=== PATIENT | female | born 1995 | race Caucasian/White ===

== ENCOUNTER 2019-06-18 13:06 | Emergency (ER) | payer OTHER, SELFPAY ==
[2019-06-18 13:15] VITALS: BP 115/71; PULSE 69; RESP 18; TEMP 37.2; O2SAT 100
--- NOTE | 2019-06-18 13:29 | ED.URI ---
HPI - URI/Sore Throat General Chief Complaint: Upper Respiratory Infection Stated Complaint: Sore Throat Source: patient Mode of arrival: ambulatory Limitations: no limitations History of Present Illness HPI Narrative: Patient is a 24-year-old female who presents with sore throat, body aches, nausea, headache, cough and chills x3 to 4 days. She denies taking [id number] medications at this time. She denies vomiting or diarrhea. MD elicited complaint: sore throat Related Data Allergies Allergy/AdvReac Type Severity Reaction Status Date / Time No Known Drug Allergies Allergy Unknown Verified 12/02/18 16:00 Review of Systems Review of Systems: Narrative: CONSTITUTIONAL: Denies fever, chills, or sweats. EYES: Denies visual changes, redness, or discharge. ENT: Denies rhinorrhea, congestion, or otalgia. Reports sore throat CARDIOVASCULAR: Denies chest pain, palpitations, or edema. RESPIRATORY: Reports cough, denies dyspnea. GASTROINTESTINAL: Denies abdominal pain, vomiting, or diarrhea. Reports nausea GENITOURINARY: Denies dysuria or hematuria. SKIN: Denies rash or itching. MUSCULOSKELETAL: Denies back pain, joint pain, or myalgia. NEUROLOGIC: Denies headache, numbness, dizziness, or weakness. PSYCHIATRIC: Denies anxiety or depression. COUNTS INCLUDE 234 BEDS AT THE [facility] Social History Social History (Updated 06/18/19 @ 13:33 by MIKAELA Bobo) Smoking status: Current every day smoker Alcohol intake: current Alcohol use details: Socially Substance use: never Living arrangements: with family Gender identity (if verbalized by the patient): Female Exam Narrative: Exam Narrative: GENERAL: Well-appearing, well-nourished, and in no acute distress. HEAD: Normocephalic, atraumatic. EYES: EOMI. No redness or drainage. Conjunctiva are normal. ENT: Mucous membranes pink and moist. Nares clear. No rhinorrhea. TMs normal bilaterally. Pharyngeal erythema and edema. Uvula midline. NECK: AROM. Supple. No lymphadenopathy. CHEST: No respiratory distress. Clear to auscultation. HEART: Regular rate and rhythm. No murmur appreciated. Normal peripheral pulses. GI: Soft, nontender without rebound, or guarding. No distention. Bowel sounds normal in all quadrants. MUSCULOSKELETAL: No bony tenderness. EXTREMITIES: Normal range of motion. No edema. SKIN: Warm, dry, no rash. NEURO: No focal deficits. Alert and oriented x3. Gait steady. PSYCH: Normal affect. No signs of depression or anxiety. Course Vital Signs Vital signs: Vital Signs Temperature 37.2 C 06/18/19 13:15 Pulse Rate 69 06/18/19 13:15 Respiratory Rate 18 06/18/19 13:15 Blood Pressure 115/71 06/18/19 13:15 Pulse Oximetry 100 06/18/19 13:15 Temperature 37.2 C 06/18/19 13:15 Pulse Rate 69 06/18/19 13:15 Respiratory Rate 18 06/18/19 13:15 Blood Pressure 115/71 06/18/19 13:15 Pulse Oximetry 100 06/18/19 13:15 MDM - URI/Sore Throat MDM Narrative Medical decision making narrative: Rapid strep is negative. Patient most likely has viral illness. Discussed plan of care with patient. Patient is stable for discharge home with outpatient follow-up as needed. Differential Diagnosis Differential diagnosis: Likely upper respiratory infection, viral infection, bronchitis, influenza and pharyngitis Medical Records Attestation: I reviewed the patient's medical records. Lab Data Attestation: I reviewed the patient's lab results. Labs: Strep Screen Presumptive Negative *(Reference Range: Negative)* Discharge Plan Discharge Clinical Impression: Pharyngitis, Nausea Patient Disposition: Home, Self-Care Condition: Stable Prescriptions: New prednisone 20 mg tablet 20 mg PO BID 5 Days Qty: 10 RF: 0 ondansetron 4 mg tablet,disintegrating 4 mg PO Q6H PRN (Reason: nausea and vomiting) Qty: 10 RF: 0 ibuprofen 600 mg tablet 600 mg PO Q6H PRN (Reason: fever or pain) Qty: 20 RF: 0 Follow-up/R
== END 2019-06-18 13:40 | disposition home or self-care (01) ==
PROVIDERS: Emergency Provider Nurse Practitioner
DX: J02.9 Acute pharyngitis, unspecified (principal); R11.0 Nausea; F17.200 Nicotine dependence, unspecified, uncomplicated
CPT/HCPCS: 87081; 87880; 99213; G0463

== ENCOUNTER 2019-08-01 17:30 | Emergency (ER) | payer OTHER, SELFPAY ==
--- NOTE | ~2019-08-01 | XR_ITS ---
EXAMINATION: XR chest 1V portable 08/01/2019 18:25 INDICATION: Midsternal chest pain PROCEDURE: AP portable chest COMPARISON: CT dated 12/05/2018 FINDINGS: The lungs are clear. The cardiomediastinal silhouette is within normal limits. There are no pleural effusions. There is no pneumothorax suspected. IMPRESSION: 1: NO ACUTE CARDIOPULMONARY DISEASE. Reviewed, dictated and finalized at location A.
[2019-08-01 17:37] VITALS: BP 110/79; PULSE 96; RESP 20; TEMP 36.8; O2SAT 98
--- NOTE | 2019-08-01 18:05 | ECG_ITS ---
Measurements Intervals [place] Rate: 83 P: 67 MT: 139 QRS: 23 QRSD: 98 T: 40 QT: 367 QTc: 433 Interpretive Statements SINUS RHYTHM WITH SINUS ARRHYTHMIA INCOMPLETE RIGHT BUNDLE BRANCH BLOCK BORDERLINE ECG Electronically Signed On 08-02-2019 13:31:36 CDT by Alexandr Ryan D.O.
[2019-08-01 18:06] VITALS: PULSE 69
[2019-08-01 18:17] LABS: Basophils Absolute Auto 0.1 K/mm3 (0.0-0.1); Basophils Percent Auto 0.6 % (0.2-1.2); Eosinophils Absolute Auto 0.1 K/mm3 (0-0.3); Eosinophils Percent Auto 1.6 % (0-4.4); Hematocrit 38.3 % (37.0-47.0); Hemoglobin 12.1 g/dL (12.0-15.0); Immature Granulocyte Absolute 0.03 K/mm3 (0.00-0.031); Immature Granulocyte Percent A 0.4 % (0-0.5); Lymphocytes Absolute Auto 2.31 K/mm3 (0.9-3.2); Mean Corpuscular HGB Conc 31.6 g/dl (32-36); Mean Corpuscular Hemoglobin 25.9 pg (26-34); Mean Platelet Volume 11.5 fl (7.4-10.4); Monocytes Absolute Auto 0.5 K/mm3 (0.1-0.6); Monocytes Percent Auto 5.3 % (2.6-8.5); Neutrophils Absolute Auto 5.6 K/mm3 (1.3-6.7); Neutrophils Percent Auto 65.1 % (45.5-73.1); Platelet Count Result 215 k/mm3 (150-375); Red Blood Count 4.67 M/mm3 (4.2-5.4); Red Cell Distribution Width 14.4 % (11.5-14.5); White Blood Count 8.5 K/mm3 (4.5-10.0)
[2019-08-01 18:26] LABS: INR 1.1; Prothrombin Time 13.6 Seconds (11.1-14.7)
[2019-08-01 18:27] LABS: Partial Thromboplastin Time 27.3 SECONDS (22.3-36.8)
[2019-08-01 18:29] LABS: Blood Urea Nitrogen 13 mg/dL (7-17); Calcium 9.4 mg/dL (8.4-10.2); Carbon Dioxide 27 mmol/L (22-30); Chloride 106 mmol/L (98-107); Estimated CRCL calculation 103 ml/min; Estimated Glomerular Filt Rate > 60; Glucose 93 mg/dL (65-105); Potassium 3.7 mmol/L (3.4-5.0); Sodium 140 mmol/L (137-145)
[2019-08-01] MEDS: ASPIRIN 81 MG CHEWABLE TABLET 324 MG PO (18:29)
[2019-08-01 18:41] LABS: Troponin I < 0.012 ng/mL (0.000-0.034)
--- NOTE | 2019-08-01 18:46 | ED.CHESTPAIN ---
HPI - Chest Pain General Chief Complaint: Chest Pain Stated Complaint: CP X3D Time Seen by Provider: 08/01/19 17:34 Source: patient Limitations: no limitations History of Present Illness HPI narrative: Patient is a 24-year-old female who presents with left-sided chest pain for 3 days that is been constant noting aching pain patient denies injury trauma or illness was seen by primary care and referred to emergency department on arrival patient in no distress resting comfortably has not taken anything for her pain Related Data Allergies Allergy/AdvReac Type Severity Reaction Status Date / Time No Known Drug Allergies Allergy Unknown Verified 12/02/18 16:00 Review of Systems Review of Systems: All systems reviewed & are unremarkable except as noted in HPI and below PMFSH Social History Social History Smoking status: Current every day smoker Alcohol intake: current Substance use: never Gender identity (if verbalized by the patient): Female Exam Narrative: Exam Narrative: GENERAL: Well-appearing, well-nourished, and in no acute distress. HEAD: Normocephalic, atraumatic. EYES: PERRLA and EOMI. ENT: Nares clear, no rhinorrhea or epistaxis. Mucous membranes moist. Oropharynx without tonsillar hypertrophy exudate or other lesions. NECK: Supple. No adenopathy or masses. CHEST: Clear to auscultation. No respiratory distress. No wheezes rales or rhonchi reproducible left-sided chest wall tenderness to palpation. HEART: Regular rate and rhythm. No murmur heard. Normal peripheral pulses. ABDOMEN: Soft, nontender, nondistended EXTREMITIES: Normal range of motion. No edema. SKIN: Warm, dry, no rash. NEURO: No focal deficits. Alert and oriented x3. PSYCH: Normal mood and affect. Course Course Emergency Course: Patient in the room in no distress aware of case findings treatment plan and diagnosis agreeing to follow-up as directed or to return if symptoms worsen or concerns Vital Signs Vital signs: Vital Signs Temperature 98.3 F 08/01/19 17:37 Pulse Rate 96 08/01/19 17:37 Respiratory Rate 20 08/01/19 17:37 Blood Pressure 110/79 08/01/19 17:37 Pulse Oximetry 98 08/01/19 17:37 Temperature 98.3 F 08/01/19 17:37 Pulse Rate 69 04/08/20 18:06 Respiratory Rate 20 08/01/19 17:37 Blood Pressure 110/79 08/01/19 17:37 Pulse Oximetry 98 08/01/19 17:37 MDM - Chest Pain MDM Narrative Medical decision making narrative: Patient without any high risk changes in her imaging blood work and EKG felt appropriate for outpatient reevaluation by primary care patients pain is reproducible normal vital signs Lab Data Result diagrams: 08/01/19 18:11 08/01/19 18:11 Labs: Lab Results 08/01/19 08/01/19 08/01/19 Range/Units 18:10 18:11 18:11 WBC 8.5 (4.5-10.0) K/mm3 RBC 4.67 (4.2-5.4) M/mm3 Hgb 12.1 (12.0-15.0) g/dL Hct 38.3 (37.0-47.0) % MCV 82.0 (80-100) fl MCH 25.9 L (26-34) pg MCHC 31.6 L (32-36) g/dl RDW 14.4 (11.5-14.5) % Plt Count 215 (150-375) k/mm3 MPV 11.5 H (7.4-10.4) fl Immature Gran % (Auto) 0.4 (0-0.5) % Neut % (Auto) 65.1 (45.5-73.1) % Lymph % (Auto) 27.0 (18.3-44.2) % [place] % (Auto) 5.3 (2.6-8.5) % Eos % (Auto) 1.6 (0-4.4) % Baso % (Auto) 0.6 (0.2-1.2) % Lymph # (Auto) 2.31 (0.9-3.2) K/mm3 [place] # (Auto) 0.5 (0.1-0.6) K/mm3 Eos # (Auto) 0.1 (0-0.3) K/mm3 Baso # (Auto) 0.1 (0.0-0.1) K/mm3 Abs Immat Gran (auto) 0.03 (0.00-0.031) K/mm3 Absolute Neuts (auto) 5.6 (1.3-6.7) K/mm3 Absolute Nucleated RBC 0.0 (0.0-0.012) K/mm3 Nucleated RBC % 0.0 (0.0-0.2) % PT 13.6 (11.1-14.7) Seconds INR 1.1 APTT 27.3 (22.3-36.8) SECONDS Sodium 140 (137-145) mmol/L Potassium 3.7 (3.4-5.0) mmol/L Chloride 106 (98-107) mmol/L Carbon Dioxide 27 (22-30) mmol/L BUN 13
== END 2019-08-01 19:04 | disposition home or self-care (01) ==
PROVIDERS: Emergency Provider Emergency Medicine; PCP Emergency Medicine
DX: R07.9 Chest pain, unspecified (principal); F17.200 Nicotine dependence, unspecified, uncomplicated; I45.10 Unspecified right bundle-branch block
CPT/HCPCS: 36415; 71045; 80048; 84484; 85025; 85610; 85730; 93005; 99284; A9270

== ENCOUNTER 2019-10-14 | Emergency (ER) | payer OTHER, SELFPAY ==
--- NOTE | ~2019-10-14 | XR_ITS ---
EXAMINATION: XR chest 2V 10/14/2019 00:24 INDICATION: Chest pain PROCEDURE: PA and lateral views of the chest COMPARISON: 08/01/2019 FINDINGS: The lungs are clear. The cardiomediastinal silhouette is within normal limits. There are no pleural effusions. There is no pneumothorax suspected. IMPRESSION: 1: NO ACUTE CARDIOPULMONARY DISEASE. Reviewed, dictated and finalized at location A.
[2019-10-14 00:04] VITALS: BP 136/88; PULSE 79; RESP 18; TEMP 37.2; O2SAT 100
--- NOTE | 2019-10-14 00:06 | ECG_ITS ---
Measurements Intervals [place] Rate: 65 P: 43 RI: 140 QRS: 9 QRSD: 97 T: 41 QT: 367 QTc: 383 Interpretive Statements SINUS RHYTHM WITH SINUS ARRHYTHMIA INCOMPLETE RIGHT BUNDLE BRANCH BLOCK DELAYED PRECORDIAL R/S TRANSITION BASELINE ARTIFACT- I, II, AVR, V1 BORDERLINE ECG Electronically Signed On 10-14-2019 8:12:33 CDT by Alexandr Ryan D.O.
[2019-10-14 00:27] LABS: Basophils Absolute Auto 0.1 K/mm3 (0.0-0.1); Basophils Percent Auto 0.6 % (0.2-1.2); Eosinophils Absolute Auto 0.2 K/mm3 (0-0.3); Immature Granulocyte Absolute 0.02 K/mm3 (0.00-0.031); Immature Granulocyte Percent A 0.2 % (0-0.5); Lymphocytes Absolute Auto 2.65 K/mm3 (0.9-3.2); Lymphocytes Percent Auto 32.6 % (18.3-44.2); Mean Corpuscular HGB Conc 31.7 g/dl (32-36); Mean Corpuscular Hemoglobin 26.1 pg (26-34); Mean Corpuscular Volume 82.3 fl (80-100); Mean Platelet Volume 12.4 fl (7.4-10.4); Monocytes Absolute Auto 0.7 K/mm3 (0.1-0.6); Monocytes Percent Auto 8.2 % (2.6-8.5); Neutrophils Absolute Auto 4.6 K/mm3 (1.3-6.7); Neutrophils Percent Auto 56.4 % (45.5-73.1); Platelet Count Result 194 k/mm3 (150-375); Red Blood Count 4.98 M/mm3 (4.2-5.4); Red Cell Distribution Width 15.5 % (11.5-14.5); White Blood Count 8.1 K/mm3 (4.5-10.0)
[2019-10-14 00:32] LABS: INR 1.1; Partial Thromboplastin Time 26.8 SECONDS (22.3-36.8); Prothrombin Time 13.5 Seconds (11.1-14.7)
[2019-10-14 00:34] LABS: Blood Urea Nitrogen 19 mg/dL (7-17); Calcium 9.4 mg/dL (8.4-10.2); Carbon Dioxide 25 mmol/L (22-30); Chloride 106 mmol/L (98-107); Estimated Glomerular Filt Rate > 60; Glucose 89 mg/dL (65-105); Sodium 140 mmol/L (137-145)
[2019-10-14 00:45] LABS: Troponin I < 0.012 ng/mL (0.000-0.034)
[2019-10-14 01:21] LABS: D Dimer 0.27 ug/mL (<0.48)
[2019-10-14] MEDS: KETOROLAC 15 MG/ML VIAL (*BKC) IV PUSH (01:32)
[2019-10-14 01:46] VITALS: BP 105/70; PULSE 64; RESP 18; O2SAT 99
--- NOTE | 2019-10-14 01:56 | ED.CHESTPAIN ---
HPI - Chest Pain General Chief Complaint: Chest Pain Stated Complaint: chest pain Time Seen by Provider: 10/14/19 00:13 Source: patient Mode of arrival: ambulatory Limitations: no limitations History of Present Illness HPI narrative: This patient is a 24 year old female who presents for evaluation of left sternal chest pain. She states she has had this pain for 2 m onths intermittently but yesterday her pain worsened. She has not taken anything for pain. This pain is described as sharp. She has not associated fever, cough, nausea or vomiting. It may be worse with movement. She was evaluated for this pain 2 mon ths and she is unsure of diagnosis. MD complaint: chest pain Onset: during rest Pain radiation: none Risk Factors Coronary artery disease risk factors: none Related Data Allergies Allergy/AdvReac Type Severity Reaction Status Date / Time No Known Drug Allergies Allergy Unknown Verified 12/02/18 16:00 Review of Systems Review of Systems: All systems reviewed & are unremarkable except as noted in HPI and below Constitutional: Constitutional: Denies chills and Denies fever(s) Cardiovascular: Cardiovascular: Reports chest pain and Denies radiating jaw, neck or arm pain Respiratory: Respiratory: Denies cough, Denies dyspnea and Denies wheezing Gastrointestinal: Gastrointestinal: Denies abdominal pain, Denies nausea and Denies vomiting PMFSH Social History Social History Smoking status: Current every day smoker Alcohol intake: current Substance use: never Gender identity (if verbalized by the patient): Female Exam Narrative: Exam Narrative: GENERAL: Well-appearing, well-nourished, and in no acute distress. HEAD: Normocephalic, atraumatic EYES: PERRLA and EOMI, conjunctiva clear without discharge THROAT:Mucous membranes moist, NECK: Supple, without lymphadenopathy or mass RESPIRATORY: No respiratory distress, Airway patent, Respirations non-labored, Clear to auscultation without rales, rhonchi or wheeze, reproducible chest tenderness HEART: Regular rate and rhythm. No murmur heard. Normal peripheral pulses. ABDOMEN: Soft, nontender, nondistended, normal active bowel sounds. No masses. No rebound or guarding, No organomegaly. EXTREMITIES: No edema, normal strength with full range of motion. SKIN: Warm, dry, normal color without rash NEURO: Alert and oriented x3. CN 2-12 grossly intact. No focal deficits. PSYCH: Normal mood and affect. Course Vital Signs Vital signs: Vital Signs Temperature 99.0 F 10/14/19 00:04 Pulse Rate 79 10/14/19 00:04 Respiratory Rate 18 10/14/19 00:04 Blood Pressure 136/88 10/14/19 00:04 Pulse Oximetry 100 10/14/19 00:04 Temperature 98.6 F 10/14/19 02:17 Pulse Rate 67 10/14/19 02:17 Respiratory Rate 17 10/14/19 02:17 Blood Pressure 121/81 10/14/19 02:17 Pulse Oximetry 100 10/14/19 02:17 MDM - Chest Pain Lab Data Attestation: I reviewed the patient's lab results. Result diagrams: 10/14/19 00:10 10/14/19 00:10 Labs: Lab Results 10/14/19 10/14/19 10/14/19 Range/Units 00:10 00:10 00:10 WBC 8.1 (4.5-10.0) K/mm3 RBC 4.98 (4.2-5.4) M/mm3 Hgb 13.0 (12.0-15.0) g/dL Hct 41.0 (37.0-47.0) % MCV 82.3 (80-100) fl MCH 26.1 (26-34) pg MCHC 31.7 L (32-36) g/dl RDW 15.5 H (11.5-14.5) % Plt Count 194 (150-375) k/mm3 MPV 12.4 H (7.4-10.4) fl Immature Gran % (Auto) 0.2 (0-0.5) % Neut % (Auto) 56.4 (45.5-73.1) % Lymph % (Auto) 32.6 (18.3-44.2) % [place] % (Auto) 8.2 (2.6-8.5) % Eos % (Auto) 2.0 (0-4.4) % Baso % (Auto) 0.6 (0.2-1.2) % Lymph # (Auto) 2.65 (0.9-3.2) K/mm3 [place] # (Auto) 0.7 H (0.1-0.6) K/mm3 Eos # (Auto) 0.2 (0-0.3) K/mm3 Baso # (Auto) 0.1 (0.0-0.1) K/mm3 Abs Immat Gran (auto) 0.02 (0.00-0.031) K/mm3 Absolute Neuts (auto) 4.6
[2019-10-14 02:17] VITALS: BP 121/81; PULSE 67; RESP 17; TEMP 37; O2SAT 100
== END 2019-10-14 02:18 | disposition home or self-care (01) ==
PROVIDERS: Emergency Provider General Practice; PCP Emergency Medicine
DX: R07.89 Other chest pain (principal); F17.200 Nicotine dependence, unspecified, uncomplicated; I45.10 Unspecified right bundle-branch block
CPT/HCPCS: 36415; 71046; 80048; 84484; 85025; 85380; 85610; 85730; 93005; 96374; 99284; J1885

== ENCOUNTER 2019-12-03 16:59 | Emergency (ER) | payer OTHER, SELFPAY | END 2019-12-03 17:55 | disposition left against medical advice (07) | PROVIDERS: Emergency Provider Internal Medicine Hematology & Oncology | DX: Z53.21 Procedure and treatment not carried out due to patient leaving prior to being seen by health care provider (principal) | CPT/HCPCS: 99199 ==

== ENCOUNTER 2020-05-16 22:44 | Emergency (ER) | payer OTHER, SELFPAY ==
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
[2020-05-16 22:48] VITALS: BP 124/74; PULSE 100; RESP 20; TEMP 36.9; O2SAT 100
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
[2020-05-17 00:39] VITALS: BP 118/79; PULSE 79; RESP 16; TEMP 36.7; O2SAT 98
== END 2020-05-17 00:40 | disposition home or self-care (01) ==
PROVIDERS: Emergency Provider Emergency Medicine; Family Provider Family Medicine; PCP Emergency Medicine
DX: S91.041A Puncture wound with foreign body, right ankle, initial encounter (principal); F17.200 Nicotine dependence, unspecified, uncomplicated; W34.010A Accidental discharge of airgun, initial encounter
CPT/HCPCS: 73610; 99283

== ENCOUNTER 2020-05-24 01:30 | Outpatient (CLI) | payer OTHER, SELFPAY ==
[2020-05-24 18:46] LABS: SARS-CoV-2 RNA PCR Negative
== END 2020-05-24 01:31 | disposition home or self-care (01) ==
LOC: ANHCOVIDDT 01:30
PROVIDERS: PCP Emergency Medicine; Visit Provider Surgery
DX: Z01.812 Encounter for preprocedural laboratory examination (principal); Z20.822 Contact with and (suspected) exposure to COVID-19
CPT/HCPCS: C9803; U0003; U0005

== ENCOUNTER 2020-05-27 02:08 | Day surgery (SDC) | payer OTHER, SELFPAY ==
[2020-05-26 08:25] VITALS: BMI 19.5
--- NOTE | 2020-05-26 15:19 | WPDANESEPPF ---
Anes - Initial Pre Proc Eval Procedure: Operation Date: 05/27/20 15:00 Proposed Procedures p Excision Right Lower Extremity Foreign Body - Grey Willis DO Date/Time: 05/26/20 15:19 Surgeon: Grey Willis DO Pre Op Diagnosis: Lower Extremity Foreign Body Patient Data Age: 24 Gender: F Height: 1.6 m Weight: 49.9 kg Allergies Allergy/AdvReac Type Severity Reaction Status Date / Time No Known Drug Allergies Allergy Unknown Other Verified 05/27/20 13:26 Home Medications Medication Instructions Recorded Confirmed Type ibuprofen 200 mg capsule 200 mg PO Q6H PRN 05/19/20 05/27/20 History Patient hx anesthesia problems: none Family hx anesthesia problems: none PMFSH Past Medical History Medical History Healthy female adult Surgical History Surgical History History of tonsillectomy Family History Family History Father Diabetes mellitus Mother Hypertension Grandparent Heart disease Social History Social History Smoking packs per day: 0.5 Smoking cigarettes per day: 10.0 Years smoked: 3 Smoking pack-years: 1.50 Smoking status: Current every day smoker Tobacco type: cigarettes Alcohol intake: former Substance use: never Living arrangements: with family Additional occupation/education comments: Cleaning Service Gender identity (if verbalized by the patient): Female Spiritual care concerns: No Anes - Eval Final PreProcedure Day of Procedure 05/26/20 15:19 Patient weight: normal Heart: regular rate and rhythm Lungs: clear to auscultation and normal air movement Airway: Mallampati scale class II Neurological: alert and oriented Last oral intake: >/= 8 hours ASA classification: II Emergent: no Anesthetic plan: proceed Anesthesia type and monitoring: general GIVS Informed Consent: The patient's anesthetic plan and its attendant risks and benefits were discussed with the patient/family/POA. Questions were solicited and answers provided to the satisfaction of the patient/family/POA.
[2020-05-27] MEDS: LACTATED RINGERS 1,000 ML 30 ML IV CONT (13:51)
--- NOTE | 2020-05-27 13:59 | WPDHPUPDATE1 ---
History and Physical Update Update Date/Time: 05/27/20 13:59 History and Physical has been reviewed, including an updated exam of the patient. There are NO changes in the patient's condition. Risks, benefits, and alternatives have been discussed and questions answered. Patient agrees to proceed with procedure.
[2020-05-27 14:05] VITALS: BP 114/68; PULSE 75; RESP 16; TEMP 37.2; O2SAT 100; BMI 19.1
--- NOTE | 2020-05-27 16:00 | SUR.PREOP ---
PT UPDATED AGAIN. SURGERY SHOULD BE SOON, DR BRAN FINISHED WITH PREVIOUS SURGERY
[2020-05-27] MEDS: ceFAZolin 2 GM/D5W 50 ML 2 GM/50 ML BAG IVPB (16:14)
[2020-05-27] MEDS: LIDO 1%/EPINEPHRINE 1:100,000 50 ML VIAL INFILTRATE (16:28)
[2020-05-27 16:36] VITALS: PULSE 67; RESP 14; O2SAT 96
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
[2020-05-27 17:00] VITALS: BP 111/74; PULSE 52
== END 2020-05-27 17:30 | disposition home or self-care (01) ==
PROVIDERS: Family Provider Family Medicine; PCP Emergency Medicine; Visit Provider Surgery
PROC: (CPT 10120; principal; 2020-05-27 15:00)
DX: M79.5 Residual foreign body in soft tissue (principal); F17.210 Nicotine dependence, cigarettes, uncomplicated
CPT/HCPCS: 10120; A9270; J0690; J2250; J2405; J2704; J3010; J7120

== ENCOUNTER 2020-10-23 15:30 | Emergency (ER) | payer OTHER, SELFPAY ==
[2020-10-23 15:39] VITALS: BP 105/67; PULSE 95; RESP 16; TEMP 36.9; O2SAT 99
--- NOTE | 2020-10-23 16:03 | ED.LOWEXIN ---
HPI - Extremity Injury (Lower) General Chief Complaint: Extremity Problem,Nontraumatic Stated Complaint: Toe Pain Time Seen by Provider: 10/23/20 16:03 Source: patient and RN notes reviewed Mode of arrival: ambulatory Limitations: no limitations History of Present Illness HPI Narrative: 25-year-old female presents to the [facility] with complaints of right great toe pain. Toe nail is yellow and misshapen. patient states that it has been that way for over 2 months and has seen her PCM who told her to use hydrocortisone ointment and soak. States that she has been doing both with no improvement. No redness or inflammation noted to the great toe. Toenail is tender to palpation Related Data Home Medications Medication Instructions Recorded Confirmed ibuprofen 200 mg capsule 200 mg PO Q6H PRN 05/19/20 05/27/20 Allergies Allergy/AdvReac Type Severity Reaction Status Date / Time No Known Drug Allergies Allergy Unknown Other Verified 05/27/20 13:26 Review of Systems Review of Systems: All systems reviewed & are unremarkable except as noted in HPI and below Constitutional: Constitutional: Reports no additional constitutional complaints, Denies chills and Denies fever(s) Cardiovascular: Cardiovascular: Reports no additional cardiovascular complaints and Denies chest pain Respiratory: Respiratory: Reports no additional respiratory complaints, Denies cough and Denies dyspnea Gastrointestinal: Gastrointestinal: Reports no additional gastrointestinal complaints, Denies abdominal pain, Denies nausea and Denies vomiting Musculoskeletal: Musculoskeletal: Reports no additional musculoskeletal complaints Integumentary/Breasts: Skin/Breast: Reports as per HPI Comments: Yellow right great toenail Neurologic: Reports system reviewed and no additional complaints, except as documented Psychiatric: Psychiatric: Reports no additional psychiatric complaints Allergic/Immunologic: Allergic/Immunologic: Reports no additional allergic/immunologic complaints [facility] Past Medical History Medical History Healthy female adult Surgical History Surgical History History of tonsillectomy Family History Family History Father Diabetes mellitus Mother Hypertension Grandparent Heart disease Social History Social History Smoking packs per day: 0.5 Smoking cigarettes per day: 10.0 Years smoked: 3 Smoking pack-years: 1.50 Smoking status: Current every day smoker Tobacco type: cigarettes Alcohol intake: former Substance use: never Additional occupation/education comments: Cleaning Service Gender identity (if verbalized by the patient): Female Spiritual care concerns: No Comments At the time of my signature, I reviewed and agree with the nursing past medical, surgical, social, and family history. There is no relevant family history pertinent to the patient complaint. Exam Const: General: healthy appearing, no acute distress and alert Nutritional Appearance: well nourished Orientation/consciousness: patient oriented x3 HENMT: Head: normal to inspection Neck: Neck: normal visual inspection Chest: Chest palpation & inspection: normal inspection of the chest Resp: Effort & Inspection: normal respiratory effort and no use of accessory muscles Auscultation: clear to auscultation bilaterally, no crackles, no rales, no rhonchi and no wheezes Cardio: Rate: regular rate Rhythm: regular rhythm Skin: General skin exam: normal color Rashes: no rashes Wounds: no wounds Other: Right great toenail yellow, misshapen. Surrounding tissue without redness or inflammation, no signs of infection Neuro: General: patient oriented x3, moves all extremities, no meningeal signs and no focal motor deficits
== END 2020-10-23 16:25 | disposition home or self-care (01) ==
PROVIDERS: Emergency Provider Nurse Practitioner; PCP Emergency Medicine
DX: B35.1 Tinea unguium (principal); F17.210 Nicotine dependence, cigarettes, uncomplicated
CPT/HCPCS: 99213; G0463

== ENCOUNTER 2020-12-25 16:34 | Emergency (ER) | payer OTHER, SELFPAY ==
[2020-12-25 16:41] VITALS: BP 110/71; PULSE 99; RESP 16; TEMP 37.4; O2SAT 99
--- NOTE | 2020-12-25 17:52 | ED.URI ---
HPI - URI/Sore Throat General Chief Complaint: Upper Respiratory Infection Stated Complaint: sore throat Source: patient and RN notes reviewed Mode of arrival: ambulatory History of Present Illness HPI Narrative: This is a 25-year-old female that came to urgent care with complaints of a sore throat, fever of 101 for the last couple of days. Patient has not done anything at home to relieve her symptoms. Patient also have multiple decayed teeth in her mouth. Patient notes that her teeth are decayed due to her smoking she does have an appointment with a dentist in the future. The patient denies SOB, CP, palpitation, extremity numbness, lightheadedness, dizziness, constipation, diarrhea, chills, or fever. MD elicited complaint: fever and sore throat Related Data Allergies Allergy/AdvReac Type Severity Reaction Status Date / Time No Known Drug Allergies Allergy Unknown Other Verified 05/27/20 13:26 Review of Systems Review of Systems: A 14 organ system Review of Systems was performed and pertinent positives included in the HPI, otherwise remaining ROS is negative. [facility] Past Medical History Medical History Healthy female adult Surgical History Surgical History History of tonsillectomy Family History Family History Father Diabetes mellitus Mother Hypertension Grandparent Heart disease Social History Social History Smoking packs per day: 0.5 Smoking cigarettes per day: 10.0 Years smoked: 3 Smoking pack-years: 1.50 Smoking status: Current every day smoker Tobacco type: cigarettes Alcohol intake: former Alcohol use details: Socially Substance use: never Additional occupation/education comments: Cleaning Service Gender identity (if verbalized by the patient): Female Spiritual care concerns: No Exam Narrative: GENERAL: This is a well-nourished, well-developed patient, in no apparent distress. HEAD: normocephalic, atraumatic. EYES: PERRL. Sclera clear/white. Vision is grossly intact. EARS: External ears normal, auditory canals clear and without drainage, TMs normal without perforation. Hearing grossly intact. NOSE: External nose normal with no obvious nasal discharge, nares without redness, no rhinorrhea. THROAT: Mucous membranes moist, posterior pharynx with erythema swollen tongue A 14 organ system Review of Systems was performed and pertinent positives included in the HPI, otherwise remaining ROS is negative. Multiple decayed teeth NECK: Neck supple, non-tender without lymphadenopathy, masses or thyromegaly. CARDIOVASCULAR: Regular rate and rhythm without murmurs, gallops, or rubs. RESPIRATORY: Clear to auscultation. Breath sounds equal bilaterally. No wheezes, rales, or rhonchi. GASTROINTESTINAL: Abdomen soft, non-tender, nondistended. Bowel sounds are active. No hepato-splenomegaly, or palpable masses. No guarding. SKIN: warm, intact with no suspicious lesions or rash, good texture and turgor. NEURO: awake, alert, and oriented to person, place and time. There were no obvious focal neurologic abnormalities. Steady gait EXTREMITIES: Normal range of motion. No edema. No calf tenderness. Negative Homans sign bilaterally. BACK: Nontender without deformity or crepitance. No flank tenderness. Course Course Emergency Course: Patient will discharge home with tramadol and Augmentin to treat her decayed teeth and peritonitis and lidocaine rinse. Vital Signs Vital signs: Vital Signs Temperature 99.3 F 12/25/20 16:41 Pulse Rate 99 12/25/20 16:41 Respiratory Rate 16 12/25/20 16:41 Blood Pressure 110/71 12/25/20 16:41 Pulse Oximetry 99 12/25/20 16:41 Temperature 99.3 F 12/25/20 16:41 Pulse Rate 99 12/25/20 16:41 Respiratory Rate 16 12/25/20
== END 2020-12-25 18:13 | disposition home or self-care (01) ==
PROVIDERS: Emergency Provider Nurse Practitioner; PCP Emergency Medicine
DX: K02.9 Dental caries, unspecified (principal); J02.9 Acute pharyngitis, unspecified; F17.210 Nicotine dependence, cigarettes, uncomplicated
CPT/HCPCS: 87081; 87880; 99213; G0463

== ENCOUNTER 2021-03-29 05:10 | Emergency (ER) | payer OTHER, SELFPAY ==
--- NOTE | ~2021-03-29 | XR_ITS ---
EXAMINATION: XR pelvis 1-2V DATE: 03/29/2021 06:49 INDICATION: Sacral pain post fall from of reported TECHNIQUE: An anteroposterior view of the pelvis was obtained. COMPARISON: None. FINDINGS: Bone alignment is normal. Sacral arches are intact. No evident fractures. Gas-filled loops of bowel a nd some stool in the colon which projects over the sacrum and coccyx mildly decreasing sensitivity. B ilateral hip and sacroiliac joint spaces are normal. Mild right-sided disc height loss at L4-L5. IMPRESSION: 1. No acute osseous abnormality. Reviewed, dictated and finalized at location A. [facility] PSYCHOLOGY PROFESSOR
[2021-03-29 05:17] VITALS: BP 122/91; PULSE 110; RESP 18; TEMP 37.1; O2SAT 100
--- NOTE | 2021-03-29 05:49 | ED.FALL ---
HPI - Fall General Chief Complaint: Fall Stated Complaint: fall off hover board Time Seen by Provider: 03/29/21 05:23 Source: patient History of Present Illness HPI Narrative: Patient presents with pain to her sacral area. Patient ports she was riding a hover board for the first time and she fell off it landing onto her sacral area. She had immediate pain. Her pain is achy, constant, worse with walking around and with palpation of the area, no radiation. She denies striking her head she denies loss of consciousness she denies use of any blood thinners. She denies any focal numbness or weakness. Related Data Allergies Allergy/AdvReac Type Severity Reaction Status Date / Time No Known Drug Allergies Allergy Unknown Other Verified 03/29/21 05:21 Review of Systems Review of Systems: CONSTITUTIONAL: Denies fever, chills, or sweats. EYES: Denies visual changes, redness, or discharge. ENT: Denies rhinorrhea, congestion, sore throat, or otalgia. CARDIOVASCULAR: Denies chest pain, palpitations, or edema. RESPIRATORY: Denies cough or dyspnea. GASTROINTESTINAL: Denies abdominal pain, nausea, vomiting, or diarrhea. GENITOURINARY: Denies dysuria or hematuria. SKIN: Denies rash or itching. MUSCULOSKELETAL: Denies joint pain, or myalgia. NEUROLOGIC: Denies headache, numbness, dizziness, or weakness. PSYCHIATRIC: Denies anxiety or depression. All systems reviewed & are unremarkable except as noted in HPI and below PMFSH Past Medical History Medical History Healthy female adult Surgical History Surgical History History of tonsillectomy Family History Family History Father Diabetes mellitus Mother Hypertension Grandparent Heart disease Social History Social History Smoking packs per day: 0.5 Smoking cigarettes per day: 10.0 Years smoked: 3 Smoking pack-years: 1.50 Smoking status: Current every day smoker Tobacco type: cigarettes Alcohol intake: former Alcohol use details: Socially Substance use: never Additional occupation/education comments: Cleaning Service Gender identity (if verbalized by the patient): Female Spiritual care concerns: No Exam Narrative: GENERAL: Well-appearing, well-nourished, and in no acute distress. HEAD: Normocephalic, atraumatic. EYES: PERRLA and EOMI. ENT: Nares clear, no rhinorrhea or epistaxis. Mucous membranes moist. NECK: Supple. No masses. No JVD ABDOMEN: Soft, nontender, nondistended, normal active bowel sounds. BACK: Mild diffuse tenderness to the sacral and gluteal areas no obvious deformity no focal bony tenderness no open or draining wounds EXTREMITIES: Normal range of motion. No edema. SKIN: Warm, dry, no rash. NEURO: No focal deficits. Alert and oriented x3. PSYCH: Normal mood and affect. Course Reevaluation(s) Reevaluation #1: Patient resting comfortably imaging reviewed with patient. Patient comfortable outpatient plan. Date: 03/29/21 Time: 06:58 Vital Signs Vital signs: Vital Signs Temperature 37.1 C 03/29/21 05:17 Pulse Rate 110 H 03/29/21 05:17 Respiratory Rate 18 03/29/21 05:17 Blood Pressure 122/91 H 03/29/21 05:17 Pulse Oximetry 100 03/29/21 05:17 Temperature 37.1 C 03/29/21 05:17 Pulse Rate 83 03/29/21 07:16 Respiratory Rate 15 03/29/21 07:16 Blood Pressure 127/76 03/29/21 07:16 Pulse Oximetry 100 03/29/21 07:16 MDM - Fall MDM Narrative Medical decision making narrative: H&P as above, vss, pt looks clinically well, exam without obvious deformity or focal bony tenderness, imaging without acute process, additional labs/img considered, symptomatic relief available as needed, on reevaluation pt continues to looks clinically well. Suspect soft tissue contusion, dns fracture, dislocation, cord
[2021-03-29 07:16] VITALS: BP 127/76; PULSE 83; RESP 15; O2SAT 100
== END 2021-03-29 07:18 | disposition home or self-care (01) ==
PROVIDERS: Emergency Provider Emergency Medicine; PCP Emergency Medicine
DX: S30.0XXA Contusion of lower back and pelvis, initial encounter (principal); V00.848A Other accident with standing micro-mobility pedestrian conveyance, initial encounter
CPT/HCPCS: 72170; 99283

== ENCOUNTER 2021-05-27 01:15 | Emergency (ER) | payer OTHER, SELFPAY ==
--- NOTE | ~2021-05-27 | US_ITS ---
EXAMINATION: US OB <=14 wk fetus w TV DATE: 05/27/2021 04:22 INDICATION: Vaginal bleeding. . TECHNIQUE: Real-time transabdominal and transvaginal pelvic ultrasound was performed. COMPARISON: None. FINDINGS: TRANSABDOMINAL ULTRASOUND: The uterus measures 11.5 x 5.6 x 7.2 cm. TRANSVAGINAL ULTRASOUND: The endometrial complex measures 13 mm in thickness. There is a gestational sac in the cervix with mean diameter of 1.7 cm. A yolk sac is identified. The crown rump lengt h measures 6 mm, which correlates with an estimated gestational age of 6 weeks and 3 day(s) (+/-) 4 d ay(s). heart motion is not identified by M-mode Doppler. The right ovary measures 3.1 x 2.3 x 2 .6 cm. The left ovary measures 3.6 x 1.9 x 2.3 cm. There is no free fluid in the pelvis. IMPRESSION: 1. in the cervix, which may be a spontaneous in progress or a cervical ectopic pr egnancy. Reviewed, dictated and finalized at location E. RESEARCHER IMPRESSION: 1. in the cervix, which may be a spontaneous in progress or a cervical ectopic .
--- NOTE | 2021-05-27 01:42 | ED.FEMALEGU ---
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 Patient does not know if she is or not, last menstrual period was March , unknown exact date. Related Data Allergies Allergy/AdvReac Type Severity Reaction Status Date / Time No Known Drug Allergies Allergy Unknown Other Verified 03/29/21 05:21 Review of Systems Review of Systems: All systems reviewed & are unremarkable except as noted in HPI and below Constitutional: Constitutional: Denies body ache(s), Denies chills, Denies excessive sweating, Denies fatigue, Denies fever(s), Denies headache(s), Denies lethargy, Denies malaise, Denies weakness and Denies weight loss Eyes: Eyes: Denies blurry vision, Denies change in vision and Denies loss of vision ENT: Denies dizziness, Denies ear discharge, Denies headache(s), Denies lip swelling, Denies epistaxis, Denies nasal congestion, Denies neck pain, Denies throat swelling and Denies tongue swelling Cardiovascular: Cardiovascular: Denies chest pain, Denies chest pain at rest, Denies chest pain with activity, Denies diaphoresis, Denies rapid heart rate, Denies edema, Denies irregular heart rhythm, Denies lightheadedness, Denies palpitations, Denies dyspnea and Denies dyspnea on exertion Respiratory: Respiratory: Denies chest congestion, Denies cough, Denies hemoptysis, Denies dyspnea and Denies dyspnea on exertion Gastrointestinal: Gastrointestinal: Denies abdominal pain, Denies melena, Denies hematochezia, Denies diarrhea, Denies nausea, Denies vomiting and Denies hematemesis Musculoskeletal: Musculoskeletal: Denies abnormal gait, Denies deformity, Denies joint swelling, Denies limited range of motion, Denies neck pain and Denies numbness Neurologic: Denies Abnormal speech present, Denies abnormal gait, Denies confusion, Denies dizziness, Denies headache(s), Denies focal weakness, Denies loss of vision, Denies numbness, Denies Other visual disturbances, Denies Sensory deficit (Neuro) and Denies weakness Psychiatric: Psychiatric: Denies confusion, Denies depression, Denies auditory hallucinations, Denies homicidal ideation and Denies suicidal ideation Endocrine: Endocrine: Denies cold intolerance, Denies excessive sweating, Denies fatigue, Denies heat intolerance and Denies palpitations Hematologic/Lymphatic: Hematologic/Lymphatic: Denies easy bleeding and Denies easy bruising Allergic/Immunologic: Allergic/Immunologic: Denies lip swelling, Denies throat swelling and Denies tongue swelling PMFSH Past Medical History Medical History Healthy female adult Surgical History Surgical History History of tonsillectomy Family History Family History (Reviewed 05/27/21 @ :43 by Arcadio Márquez MD) Father Diabetes mellitus Mother Hypertension Grandparent Heart disease Social History Social History Smoking packs per day: 0.5 Smoking cigarettes per day: 10.0 Years smoked: 3 Smoking pack-years: 1.50 Smoking status: Current every day smoker Tobacco type: cigarettes Alcohol intake: former Alcohol use details: Socially Substance use: never Additional occupation/education comments: Cleaning Service Gender identity (if verbalized by the patient): Female Spiritual care concerns: No Exam Const: General: cooperative, healthy appearing, comfortable, no acute distress, well developed, alert and awake; No confusion Orientation/consciousness: oriented to person, oriented to place, oriented to time, patient oriented x3 and No c
[2021-05-27 01:43] VITALS: BP 126/85; PULSE 117; RESP 20; TEMP 36.7; O2SAT 98
[2021-05-27] MEDS: SODIUM CHLORIDE 0.9% IV 1,000 ML 999 ML IV CONT ×2 (01:56→03:23)
[2021-05-27 01:57] VITALS: BP 138/85; PULSE 100; RESP 17; O2SAT 99
[2021-05-27 02:07] LABS: Basophils Absolute Auto 0.1 K/mm3 (0.0-0.1); Basophils Percent Auto 0.6 % (0.2-1.2); Eosinophils Absolute Auto 0.2 K/mm3 (0-0.3); Eosinophils Percent Auto 1.7 % (0-4.4); Hematocrit 36.9 % (37.0-47.0); Hemoglobin 11.7 g/dL (12.0-15.0); Immature Granulocyte Absolute 0.02 K/mm3 (0.00-0.031); Immature Granulocyte Percent A 0.2 % (0-0.5); Lymphocytes Absolute Auto 2.64 K/mm3 (0.9-3.2); Lymphocytes Percent Auto 29.9 % (18.3-44.2); Mean Corpuscular HGB Conc 31.7 g/dl (32-36); Mean Corpuscular Hemoglobin 26.5 pg (26-34); Mean Corpuscular Volume 83.5 fl (80-100); Mean Platelet Volume 11.3 fl (7.4-10.4); Monocytes Absolute Auto 0.8 K/mm3 (0.1-0.6); Monocytes Percent Auto 8.5 % (2.6-8.5); Neutrophils Absolute Auto 5.2 K/mm3 (1.3-6.7); Neutrophils Percent Auto 59.1 % (45.5-73.1); Platelet Count Result 226 k/mm3 (150-375); Red Blood Count 4.42 M/mm3 (4.2-5.4); Red Cell Distribution Width 16.2 % (11.5-14.5); White Blood Count 8.8 K/mm3 (4.5-10.0)
[2021-05-27 02:23] LABS: Alanine Aminotransferase 16 U/L (4-35); Albumin Level 4.5 g/dL (3.5-5.1); Alkaline Phosphatase 39 U/L (38-126); Anion Gap 7 mmol/L (8-16); Aspartate Amino Transferase 21 U/L (14-36); Bilirubin,Total 0.2 mg/dL (0.2-1.3); Blood Urea Nitrogen 14 mg/dL (7-17); Calcium 9.1 mg/dL (8.4-10.2); Carbon Dioxide 26 mmol/L (22-30); Chloride 106 mmol/L (98-107); Estimated CRCL calculation 85 ml/min; Estimated Glomerular Filt Rate > 60; Glucose 113 mg/dL (65-110); Potassium 3.4 mmol/L (3.4-5.0); Sodium 139 mmol/L (137-145)
--- NOTE | 2021-05-27 03:04 | PC.NURSE ---
Dr. Márquez went back to room to see patient after discharge and patient was found to have a lot of bleeding. Dr. Márquez would like US ordered to rule out ectopic.
[2021-05-27 03:22] VITALS: BP 103/72; PULSE 71; RESP 15; O2SAT 99
[2021-05-27 04:57] VITALS: BP 93/64; PULSE 66; RESP 16; O2SAT 99
[2021-05-27 06:58] VITALS: BP 110/73; PULSE 81; RESP 15; O2SAT 99
== END 2021-05-27 07:00 | disposition home or self-care (01) ==
PROVIDERS: Emergency Provider Emergency Medicine; PCP Emergency Medicine
DX: O20.9 Hemorrhage in early pregnancy, unspecified (principal); Z3A.00 Weeks of gestation of pregnancy not specified
CPT/HCPCS: 36415; 76801; 76817; 80053; 81025; 84702; 85025; 86900; 86901; 96360; 96361; 99284; J7030